=== PATIENT | male | born 1985 | race Caucasian/White ===

== ENCOUNTER 2019-11-16 06:26 | Inpatient (IN) ==
[2019-11-16] MEDS ORDERED: NS 500 ML IV ONE (06:45)
[2019-11-16] MEDS ORDERED: KEFZOL 1 GM/D5W 1 GM/50 ML IVPB IV ONE (06:46)
[2019-11-16 06:56] LABS: BASO# 0.05 X1000 (0.0-0.2); BASO% 0.5 % (0.0-0.8); EOS# 0.13 X1000 (0.0-0.7); EOS% 1.2 % (0.0-10.0); HEMATOCRIT 38.1 % (42.0-52.0); HEMOGLOBIN 13.1 g/dL (14.0-18.0); IMM GRAN# 0.02 X1000 (0.0-0.04); IMM GRAN% 0.2 % (0.0-0.5); LYMPH% 39.4 % (20.5-51.1); MCH 31.9 PG (27-31); MCHC 34.4 g/dL (33-37); MCV 92.7 FL (81-99); MONO# 0.81 X1000 (0.11-0.59); MONO% 7.8 % (1.7-9.3); MPV 11.6 FL (7.4-10.4); NEUT% 50.9 % (42.2-75.2); PLT 370 X1000 (130-400); RBC 4.11 XMIL (4.7-6.1); RDW 13.4 % (11.5-14.5); WBC 10.41 X1000 (4.8-10.8)
[2019-11-16 07:09] LABS: INR 1.06; PROTIME 13.9 Seconds (11.0-16.0)
[2019-11-16 07:10] LABS: PTT 28.2 Seconds (22.3-41.8)
[2019-11-16 07:14] LABS: AGAP 19; ALB/GLOB RATIO 1.3; ALBUMIN 4.3 g/dL (3.5-5.0); ALKALINE PHOSPHATASE 58 U/L (32-122); BUN 19 mg/dL (8-22); CALCIUM 8.7 mg/dL (8.8-10.2); CHLORIDE 100 mmol/L (98-107); COSMO 284; CREATININE 1.2 mg/dL (0.7-1.2); ESTIMATED GFR > 60; GLUCOSE 142 mg/dL (70-104); GOT 51 U/L (10-34); GPT 65 U/L (10-44); POTASSIUM 4.5 mmol/L (3.5-5.1); SODIUM 140 mmol/L (136-145); TCO2 21 mmol/L (25-35); TOTAL BILIRUBIN 0.37 mg/dL (0.20-1.00); TOTAL PROTEIN 7.7 g/dL (6.3-8.3)
--- NOTE | 2019-11-16 07:15 | GENERAL SURGERY CONSULTATION ---
DATE: 11/16/2019 REASON FOR CONSULTATION: Right arm laceration, with arterial injury. CHIEF COMPLAINT: Right arm laceration, with arterial injury. HISTORY OF PRESENT ILLNESS: This is a 34-year-old gentleman, who was intoxicated last night and punched his arm through a plate glass window causing a laceration to the medial upper arm. Apparently there was a large amount of blood noted on the scene. A tactical tourniquet was placed by EMS. He was brought emergently to [facility] where upon losing the tourniquet brisk arterial bleeding was noted. I was consulted. MEDICAL HISTORY: Negative other than drug abuse and alcoholism. SURGICAL HISTORY: He denies any vascular procedures. SOCIAL HISTORY: He smokes. He drinks. I believe he uses methamphetamine as well. FAMILY HISTORY: Reviewed noncontributory. REVIEW OF SYSTEMS: A 10-point review of systems is negative. PHYSICAL EXAMINATION: General: He is hemodynamically stable, but agitated and quite pale. On examination he is conversant, he is pale, somewhat diaphoretic. HEENT/Neck: No cervical masses. No obvious trauma to his head or neck Cardiovascular: Slight tachycardia. Pulmonary: He is on room air. Abdomen: Soft. Integument: Warm and dry. Peripheral vascular: There is a tourniquet up on his right arm. His right hand is cyanotic. The intrinsic muscles of his hand and arm do seem to be grossly intact. There is a large laceration to the medial aspect of his arm with some venous bleeding, but no obvious arterial bleeding at this juncture. Musculoskeletal: I do not identify any other injury visible, although there is quite a lot of blood over his body. DIAGNOSTIC DATA: Labs are pending. No imaging has been obtained. ASSESSMENT AND PLAN: This is a 34-year-old gentleman with a laceration to the medial biceps, with possible arterial injury. We discussed risk of further bleeding, infection, the need for emergent procedure, and the possible loss of his arm or loss of function of his arm. He is right handed unfortunately. Although he is intoxicated, he seemed to understand all this and consents and asked me to help him. We will take him to the operating room emergently. A Handy catheter is being placed. He has been administered antibiotics. We will confirm tetanus prior to his discharge. We will go emergently for exploration, possible brachial artery repair, possible interposition vein graft, and all other indicated procedures. cc: Debbi Petersen MD
[2019-11-16] MEDS ORDERED: NS 1,000 ML IV ONE ×2 (07:25→07:26)
[2019-11-16 07:29] LABS: UR AMPHETAMINES QUAL PRESUMPTIVE POSITIVE (NONE DETECT); UR BARBITUATES QUAL NONE DETECTED (NONE DETECT); UR BENZODIAZEPIN QUAL NONE DETECTED (NONE DETECT); UR CANNABINOIDS QUAL PRESUMPTIVE POSITIVE (NONE DETECT); UR COCAINE QUAL NONE DETECTED (NONE DETECT); UR METHADONE QUAL NONE DETECTED (NONE DETECT); UR OPIATES QUAL NONE DETECTED (NONE DETECT); UR OXYCODONE QUAL NONE DETECTED (NONE DETECT); UR PCP QUAL NONE DETECTED (NONE DETECT)
[2019-11-16] MEDS ORDERED: DIPRIVAN 1% ONE ×2 (07:42)
[2019-11-16] MEDS ORDERED: FENTANYL ONE (07:42)
[2019-11-16] MEDS ORDERED: KEFZOL 1 GM/D5W 1 GM/50 ML IVPB ONE (07:45)
[2019-11-16] MEDS ORDERED: HEPARIN (DOSE) ONE (08:17)
--- NOTE | 2019-11-16 08:17 | PROVIDER DOCUMENTATION ---
HPI-Rash/Wound/ReCheck - General Chief Complaint: Laceration[s] Stated Complaint: laceration Time Seen by Provider: 11/16/19 06:26 Source: patient, EMS Unable to obtain history due to:: urgency Allergies/Adverse Reactions: Allergies Allergy/AdvReac Type Severity Reaction Status Date / Time clarithromycin [From Biaxin] Allergy Mild SWELLING Verified 02/07/19 19:07 Home Medications: Home Medication List Medication Instructions Recorded Confirmed Last Taken Type Atenolol 25 mg PO QHS 30 Days #30 tab 09/11/18 11/16/19 Unknown Rx Divalproex Sodium [Divalproex 1 tab PO TID 02/07/19 11/16/19 Unknown History Sodium ER] - History of Present Illness-Dermatology Nature of Presenting Problem: 34 y/o WM brought to ER with complaint of laceration in Rt arm where pt stated that he had punched a window trying to show off this am. Pt is a poor historian admitting that he has been drinking and using THC and other drugs. EMS noted that pt had lost about 1000 ml blood at home. Location: reports: upper extremity (rt inner arm) Quality: reports: painful Severity: reports: severe Onset/Duration: reports: just prior to arrival Timing: reports: still present, getting worse Context/Associated Symptoms: reports: laceration Identifiable cause?: Yes Locality of Occurance: Home Similar Symptoms Previously?: No Recently seen or treated by another doctor?: No Review of Systems - Adult - REVIEW OF SYSTEMS - ADULT ROS:: limited per condition Constitutional: reports: no symptoms reported, see HPI Eyes: reports: no symptoms reported, see HPI Ears, Nose, Mouth & Throat: reports: no symptoms reported, see HPI Cardiovascular: reports: no symptoms reported, see HPI Respiratory: reports: no symptoms reported, see HPI Gastrointestinal: reports: no symptoms reported, see HPI Genitourinary: reports: no symptoms reported, see HPI Musculoskeletal: reports: see HPI Integumentary: reports: see HPI, other (large laceration to rt inner upper arm approx 3cm. laceration to lt outer wrist, approx 3cm.) Neurological: reports: no symptoms reported, see HPI Psychiatric: reports: anxiety Endocrine: reports: no symptoms reported, see HPI Hematologic/Lymphatic: reports: no symptoms reported, see HPI Allergic/Immunologic: reports: no symptoms reported, see HPI All Other Systems: Reviewed and Negative Past History - Adult - PAST MEDICAL HISTORY-ADULT Review of Records: reports: Nursing Assessment Review, Medications Reviewed, Social history reviewed & non-contributory. Major Childhood Illnesses: reports: denies history Cardiovascular: reports: HTN Respiratory: reports: denies history Gastrointestinal: reports: GERD Obstetrical/Gynecological: reports: denies history Genitourinary: reports: denies history Musculoskeletal: reports: denies history Neurological: reports: Seizures/Epilepsy Psychiatric: reports: anxiety, depression Endocrine/Immune: reports: denies history Other Conditions: reports: other (chronic pain) Additional History: denies recent travel; eats sushi regularly; no other known risk factors - PRIOR HOSPITALIZATIONS Prior Hospitalizations: reports: for other non-related - IMMUNIZATION STATUS Childhood Immunizations: See Nurse Assessment Flu Vaccine: See Nurse Assessment - FAMILY HISTORY Family History: reviewed, not pertinent Physical Exam-General - PHYSICAL EXAM-ADULT Exam Limited by: pt condition Initial Vital Signs Reviewed: Yes - CONSTITUTIONAL General Appearance: appears well, alert, moderate distress, thin - EYES Eyes: PERRL/EOMI - HEAD, EARS, NOSE, MOUTH & THROAT HENMT: normocephalic/atraumatic, moist mucous membranes - NECK Neck: non-tender, full range of motion, supple, normal inspection - RESPIRATORY Respiratory: chest non-tender, lungs clear, normal breath sounds, no pleuratic chest pain, no respiratory distress, no accessory muscle use - CARDIOVASCULAR Cardiovascular: normal peripheral pulses, regular rate, rhythm, no edema, no gallop, no JVD, no murmur - GASTROINTESTINAL (ABDOMEN) Abdominal Exam: normal bowel sounds, non tender, soft, no organomegaly, no pulsatile mass - LYMPHATIC Lymphatic: no adenopathy - MUSCULOSKELETAL Back Exam: normal inspection, no CVA tenderness, no vertebral tenderness Extremity: normal range of motion, non-tender, normal gait, normal inspection, no pedal edema, no calf tenderness, normal capillary refill - SKIN Integumentary: laceration(s) (as above) - NEUROLOGIC Neurologic: truck driver instructor II-XII nml as tested, grossly normal, no motor/sensory deficits - PSYCHIATRIC Psych/Mental Status: anxious, paranoid, tearful Progress - PLAN OF CARE/RESULTS Progress/Plan/Lab Results: Laboratory Results - last 24 hr 11/16/19 11/16/19 11/16/19 06:44 06:44 06:44 WBC RBC Hgb Hct MCV MCH MCHC RDW Std Deviation Plt Count MPV Immature Gran % (Auto) Neut % (Auto) Lymph % (Auto) [place] % (Auto) Eos % (Auto) Baso % (Auto) Immature Gran # (Auto) Neut # (Auto) Lymph # (Auto) [place] # (Auto) Eos # (Auto) Baso # (Auto) PT INR PTT (Actin FS) Sodium 140 Potassium 4.5 Chloride 100 Carbon Dioxide 21 L Anion Gap 19 BUN 19 Creatinine 1.2 Estimated GFR/1.73 m2 > 60 BUN/Creatinine Ratio 16 Glucose 142 H Calculated Osmolality 284 Calcium 8.7 L Total Bilirubin 0.37 AST 51 H ALT 65 H Alkaline Phosphatase 58 Total Protein 7.7 Albumin 4.3 Globulin 3.4 Albumin/Globulin Ratio 1.3 Urine Opiates Screen Ur Oxycodone Screen Ur Methadone, Qual Ur Barbiturates Screen Ur Phencyclidine Scrn Ur Amphetamines Screen U Benzodiazepines Scrn Urine Cocaine Screen U Cannabinoids Screen Plasma/Serum Ethyl Alc 259 H Blood Type A NEGATIVE Antibody Screen NEGATIVE Crossmatch See Detail 11/16/19 11/16/19 11/16/19 06:44 06:44 07:00 WBC 10.41 RBC 4.11 L Hgb 13.1 L Hct 38.1 L MCV 92.7 MCH 31.9 H MCHC 34.4 RDW Std Deviation 13.4 Plt Count 370 MPV 11.6 H Immature Gran % (Auto) 0.2 Neut % (Auto) 50.9 Lymph % (Auto) 39.4 [place] % (Auto) 7.8 Eos % (Auto) 1.2 Baso % (Auto) 0.5 Immature Gran # (Auto) 0.02 Neut # (Auto) 5.30 Lymph # (Auto) 4.10 H [place] # (Auto) 0.81 H Eos # (Auto) 0.13 Baso # (Auto) 0.05 PT 13.9 INR 1.06 PTT (Actin FS) 28.2 Sodium Potassium Chloride Carbon Dioxide Anion Gap BUN Creatinine Estimated GFR/1.73 m2 BUN/Creatinine Ratio Glucose Calculated Osmolality Calcium Total Bilirubin AST ALT Alkaline Phosphatase Total Protein Albumin Globulin Albumin/Globulin Ratio Urine Opiates Screen NONE DETECTED Ur Oxycodone Screen NONE DETECTED Ur Methadone, Qual NONE DETECTED Ur Barbiturates Screen NONE DETECTED Ur Phencyclidine Scrn NONE DETECTED Ur Amphetamines Screen PRESUMPTIVE POSITIVE A U Benzodiazepines Scrn NONE DETECTED Urine Cocaine Screen NONE DETECTED U Cannabinoids Screen PRESUMPTIVE POSITIVE A Plasma/Serum Ethyl Alc Blood Type Antibody Screen Crossmatch Orders Category Date Time Status Consent for Test/Procedure DIRECTED Care 11/16/19 06:45 Completed Handy Cath Insertion ORDERED Care 11/16/19 06:50 Completed Notify if DIRECTED Care 11/16/19 06:45 Active Nursing- Obtain EKG ONCE Care 11/16/19 06:29 Completed Transfuse .Give-Transfuse Care 11/16/19 06:46 Active HUMERUS-RIGHT [RAD] Stat Exams 11/16/19 07:00 Completed ALCOHOL BLOOD Stat Lab 11/16/19 06:44 Completed CBC WITH ELECTRONIC DIFF [HEME] Stat Lab 11/16/19 06:44 Completed COMPREHENSIVE METABOLIC PANEL [CHEM] Stat Lab 11/16/19 06:44 Completed LRPC (RED CELLS) [BBK] Stat Lab 11/16/19 06:44 Results PROTIME WITH INR [COAG] Stat Lab 11/16/19 06:44 Completed PTT [COAG] Stat Lab 11/16/19 06:44 Completed TYPE & SCREEN [BBK] Stat Lab 11/16/19 06:44 Results URINE DRUG SCREEN Stat Lab 11/16/19 07:00 Completed 0.9% Sodium Chloride Inj [Ns] 1,000 ml Med 11/16/19 07:25 Discontinued IV 999 mls/hr 0.9% Sodium Chloride Inj [Ns] 1,000 ml Med 11/16/19 07:26 Discontinued IV 999 mls/hr 0.9% Sodium Chloride Inj [Ns] 500 ml Med 11/16/19 06:45 Discontinued IV 30 mls/hr Cefazolin 1 gm/D5w [Kefzol 1 gm/D5w] Med 11/16/19 07:45 Discontinued 1 gm in 50 ml .ROUTE As directed Cefazolin 1 gm/D5w [Kefzol 1 gm/D5w] Med 11/16/19 06:46 Discontinued 1 gm in 50 ml IV NOW Fentanyl Med 11/16/19 07:42 Discontinued 100 microgm .ROUTE .STK-MED ONE Propofol [Diprivan 1%] Med 11/16/19 07:42 Discontinued 200 mg .ROUTE .STK-MED ONE Propofol [Diprivan 1%] Med 11/16/19 07:42 Discontinued 200 mg .ROUTE .STK-MED ONE Permit for: Routine Oth 11/16/19 06:53 Ordered EKG [EKG] Stat Ther 11/16/19 06:29 Ordered Result Diagrams: 11/16/19 17:34 11/16/19 10:11 - CONSULTS/PCP/HOSPITALIST Notification #1 *Consult/PCP/Hospitalist*: Dr Petersen Surgery Time Discussed: 06:45 Consult Disposition: Will see in ED Departure - Departure Date of Disposition Decision: 11/16/19 Time of Disposition Decision: 08:24 DIAGNOSIS: Arm laceration, Intoxication, Hypovolemic shock, Substance abuse Disposition: ADMITTED INPATIENT 09 Certified Medical Emergency: Emergent Condition: Serious - Critical Care Note This patient required my direct & personal management of CC.: Yes Total Time (mins): 60 Critical Care Statement: This patient required my direct personal management to treat or rule out processes, the absence of which, could potentiallly result in sudden, clinically significant life or limb threatening deterioration. Attestation - Physician/ DESHAWN Attestation Patient care was provided by Advanced Practice Provider:: No The physician spent face to face time with patient:: Yes Advanced Practice Provider documentation review:: Supervising physician onsite and consulted in the evaluation and care of this patient. The physician did have a face to face encounter with the patient.
[2019-11-16] MEDS ORDERED: HEPARIN ONE (08:53)
[2019-11-16] MEDS ORDERED: NS 250 ML ONE (08:54)
[2019-11-16] MEDS ORDERED: KEFZOL ONE (09:12)
[2019-11-16] MEDS ORDERED: XYLOCAINE-MPF 2% ONE (10:04)
[2019-11-16] MEDS ORDERED: ZEMURON ONE (10:04)
[2019-11-16] MEDS ORDERED: SODIUM CHLORIDE 0.9% 10 ML ONE (10:04)
[2019-11-16] MEDS ORDERED: QUELICIN (DOSE) ONE (10:04)
[2019-11-16] MEDS ORDERED: NEO-SYNEPHRINE ONE (10:04)
[2019-11-16] MEDS: ZOFRAN IV PRN ×2 (10:07→14:17)
[2019-11-16] MEDS ORDERED: HEPARIN 25,000 UNITS/D5W 25,000 UNIT/250 ML IV.SOLN IV SCH ×3 (10:07→18:45)
[2019-11-16] MEDS: DILAUDID ONE ×4 (10:21→10:31)
[2019-11-16] MEDS ORDERED: TYLENOL PO PRN (10:29)
[2019-11-16 10:34] LABS: BASO# 0.03 X1000 (0.0-0.2); BASO% 0.2 % (0.0-0.8); EOS# 0.03 X1000 (0.0-0.7); EOS% 0.2 % (0.0-10.0); HEMATOCRIT 32.5 % (42.0-52.0); HEMOGLOBIN 10.7 g/dL (14.0-18.0); IMM GRAN# 0.06 X1000 (0.0-0.04); IMM GRAN% 0.4 % (0.0-0.5); LYMPH# 1.56 X1000 (1.2-3.4); LYMPH% 10.5 % (20.5-51.1); MCH 29.9 PG (27-31); MCHC 32.9 g/dL (33-37); MCV 90.8 FL (81-99); MONO# 0.71 X1000 (0.11-0.59); MONO% 4.8 % (1.7-9.3); MPV 11.1 FL (7.4-10.4); NEUT# 12.43 X1000 (1.4-6.5); NEUT% 83.9 % (42.2-75.2); PLT 224 X1000 (130-400); RBC 3.58 XMIL (4.7-6.1); RDW 15.7 % (11.5-14.5); WBC 14.82 X1000 (4.8-10.8)
[2019-11-16] MEDS: PHENERGAN ONE ×2 (10:35→11:46)
[2019-11-16 11:01] LABS: AGAP 12; BUN 14 mg/dL (8-22); CALCIUM 6.3 mg/dL (8.8-10.2); CHLORIDE 111 mmol/L (98-107); COSMO 283; CREATININE 0.8 mg/dL (0.7-1.2); ESTIMATED GFR > 60; GLUCOSE 124 mg/dL (70-104); POTASSIUM 5.3 mmol/L (3.5-5.1); SODIUM 141 mmol/L (136-145); TCO2 18 mmol/L (25-35)
[2019-11-16] MEDS: DEPAKOTE ER PO SCH ×3 (11:44→21:41)
[2019-11-16] MEDS: LR 1,000 ML IV SCH ×2 (11:46→19:26)
[2019-11-16] MEDS ORDERED: CALCIUM GLUCONATE 4.65 MEQ in NS 50 ML IV ONE (12:54)
--- NOTE | 2019-11-16 13:27 | Diag Imaging Result Doc PS360 ---
EXAM: HUMERUS-RIGHT HISTORY: arterial bleed TECHNIQUE: Two views COMPARISON: None. FINDINGS: No fracture. No dislocation. There are medial skin anju. Tiny pieces of metal in the soft tissues of the lower arm. IMPRESSION: No acute bony injury. Electronically signed by Dash Bell 11/16/2019 1:25 PM
--- NOTE | 2019-11-16 13:34 | HISTORY AND PHYSICAL ---
PRIMARY CARE PROVIDER: Nicole Calloway, nurse practitioner. CHIEF COMPLAINT: Polysubstance intoxication. Hit window and sustained right arm laceration with arterial injury. HISTORY OF PRESENT ILLNESS: Mr. Shahid Shi is a 34-year-old male that came in earlier this morning, went for emergency surgery due to an injury he sustained to the right brachial artery transection with surgery performed by Dr. Deon Petersen. Postoperatively, we were able to see and evaluate. He has a medical history of hepatitis C, where he states he had already been treated for it. History of pituitary adenoma, anxiety, depression, hypertension with tachycardia and seizure disorder. He states the last time he had a seizure was around 2 nights ago, but he is on Depakote for that. Postoperatively he was transferred to [facility] so his arterial pulse can be monitored more closely and has a heparin drip that has been ordered. Mr. Shahid Shi admits to drinking whiskey, snorting methamphetamines and smoked marijuana last night. PAST MEDICAL HISTORY: 1. Seizure disorder. Last one was 2 nights ago on Depakote. 2. Hypertension with tachycardia on atenolol. 3. Anxiety, depression. 4. History of pituitary adenoma. 5. History of hepatitis C with treatment. SURGICAL HISTORY: None until now. He is status post a day of surgery for repair of transected right brachial artery; also with repair of tendons, etc. SOCIAL HISTORY: He smokes less than half pack per day. Started smoking cigarettes at the age of 11. He drinks about a fifth of whiskey 3 days a week. He smokes marijuana 3 or 4 times a month. He also snorts methamphetamines at least 5 times a year. He is not , no children. He lives at home with his grandmother. He also does not work. FAMILY HISTORY: Mother had diabetes. Father had pancreatic cancer. ALLERGIES: Clarithromycin, Robaxin. HOME MEDICATIONS: 1. Atenolol 25 mg p.o. nightly. 2. Depakote 500 mg p.o. t.i.d. REVIEW OF SYSTEMS: Fourteen point review of systems are complete and all were negative, except those mentioned above in the HPI. PHYSICAL EXAMINATION: VITAL SIGNS: Temperature 96.9 degrees, heart rate 85, respiratory rate 16, blood pressure 104/66, O2 saturation 99% on room air, 5 feet 9 inches tall, 180 pounds. BMI is 26.6. GENERAL: Mr. Shahid Shi is a 34-year-old male. He is in no acute distress. He is able to answer questions appropriately. HEENT: Atraumatic, normocephalic. Pupils equal, round, reactive to light. Extraocular movements intact. Mucous membranes are dry. NECK: Trachea midline. CARDIOVASCULAR: S1, S2. Regular rate and rhythm. No rubs, gallops, murmurs. No lower extremity edema. There is +2 dorsalis and radial pulses. He has got good capillary refill in the right hand. Negative for JVD or carotid bruits. PULMONARY: Clear to auscultate. Bilateral breath sounds. No accessory muscle use or work of breathing noted. GI: Soft, nontender, nondistended. Positive bowel sounds x4. EXTREMITIES: Moves all extremities equally, except for the right arm. He defers from moving it due to the pain. He has a pressure dressing wrapped around the right upper extremity, right above the elbow. NEUROLOGIC: A and O x3. Follows commands. Sensory is intact. He is a little bit drowsy, but otherwise mostly alert. SKIN: Warm, dry, intact, except for he has got dressing over the right upper arm, and he has a little bit of a pale color to him. LABORATORY DATA: White blood cells 14,000, hemoglobin 10, hematocrit 32, platelet count 224. INR is 1.06, PTT is 33.6. Sodium 141, potassium 5.3. BUN 14, creatinine 0.8, glucose 124, calcium 6.3. Bilirubin 0.37, AST 51, ALT 65, albumin is 4.3. Urine drug screen: Amphetamine positive, cannabinoid positive, and alcohol was 259. MICROBIOLOGY: No micro obtained. He received 1 unit of packed red blood cells. IMAGING STUDIED: No new imaging. ASSESSMENT AND PLAN: 1. Traumatic injury of the right brachial artery and tendons with repair by Dr. Petersen. Today is day of surgery. Postoperatively, he is going to be monitored in progressive care unit. He is going to be on a heparin drip. Frequent neurovascular checks of the right upper extremity ordered, and he has got good capillary refill with +2 radial pulse, warm hands. 2. History of seizure disorder. Apparently had one 2 nights ago, but he is on Depakote and that has been resumed. 3. History of hypertension with tachycardia. He is on atenolol for that. That is resumed. 4. History of anxiety and depression. No home medications for that. However, he is on Depakote, which can be mood stabilizing. 5. History of pituitary adenoma. 6. History of hepatitis C where he states he has been treated. However, he does have some transaminitis that could be related to the alcohol abuse. We will repeat a hepatitis panel here. 7. Mild hyperkalemia. Potassium is 5.3. Could be due to blood transfusion, possibly lysis of blood, red blood cells. 8. Acute blood loss anemia secondary to right brachial artery transection. 9. Leukocytosis, most likely inflammatory. As for original, white count was at 10,000. 10. Mild hyperglycemia; could be inflammatory. 11. Hypocalcemia; could be due to blood loss. Will repeat in the morning. 12. Amphetamine abuse, cannabinoid abuse, alcohol abuse. Cessation discussed with the patient. We will go ahead and do Ativan as needed for agitation. We will consider a one-time banana bag as long as it does not have potassium in it. 13. Tobacco abuse. Cessation discussed. Dictated by AUTUMN Shoemaker for Phoenix Pederson MD cc: AUTUMN Shoemaker MD I agree with most components of history, physical, assessment and plan. A separate addendum has been dictated. [facility]
--- NOTE | 2019-11-16 13:44 | OPERATIVE NOTE ---
PROCEDURE DATE: 11/16/2019 PREOPERATIVE DIAGNOSIS: Right upper medial arm traumatic laceration. POSTOPERATIVE DIAGNOSIS: Laceration to the right upper arm with transsection of the brachial artery, transection of the brachial veins and partial transection of the median nerve. PROCEDURE PERFORMED: 1. [place] repair of the brachial artery. 2. Ligation of the brachial veins. 3. Primary repair of the median nerve. 4. Traumatic wound washout and debridement with complex closure. ANESTHESIA: General. SURGEON: Dr. Deon Petersen. MECHANICAL ENGINEERING PROFESSOR: Dr. Horn was present. He facilitated exposure, mobilization of the artery, repair of the artery, repair of the nerves. FINDINGS: 1. There was an anterior medial laceration that was several centimeters. There was there was tactical tourniquet in place. 2. There was complete transection and retraction of the brachial artery. There was significant longitudinal injury to the brachial veins and then there was partial transection of at least 50% if not 75% of the median nerve. OPERATIVE NOTE: Risks, benefits and alternatives were discussed with the patient and he consented to the procedure. He was seen preoperatively. Surgical site was confirmed. He was taken emergently to the operating room where his hand and arm were prepped Betadine, excluding the tactical tourniquet in the upper arm. We also prepped in his upper leg for possible greater saphenous vein harvest. After a time-out, we evacuated old hematoma out of the wound, identified several sources of venous bleeding and extended the laceration along the more typical medial arterial approach. We were able to identify the several bleeding veins that were clipped and then we identified the distal aspect of the brachial artery and gained distal control. The proximal portion at this point was identified and an atraumatic clamp was placed and the tourniquet was released. He was systemically heparinized with 3000 units of intravenous heparin. There was brisk back-bleeding noted from the distal aspect of the brachial artery. We then mobilized proximally and distally the brachial artery to provide a tension-free repair. We, using Kearney scissors, debrided just a small portion of the distal artery. There was no significant dissection. There was good inflow and outflow bleeding noted. At this point, using a 6-0 Prolene suture, an end-to-end anastomosis was performed. We confirmed that the brachial arteries were irreparable given the extent of damage here, but they were well ligated and we did identify several collateral veins that did appear to have flow. We then turned our attention after restoring flow, we took the distal clamp off, allowed bleeding, completed our repair and then took off the proximal clamp. There was a small arterial branch that was ligated with a 4-0 silk suture. We had a good distal pulse noted in the brachial artery. At the end the case, the radial artery had a strong palpable pulse. A 5-0 Prolene was used to reapproximate the perineural tissue to hopefully help prevent a significant deficit or allow more prompt recovery of this deficit and this did require some degree of mobilization of the proximal and distal nerve to provide relatively tension-free, but there was still some tension on the nerve given the significant injury here. At this point, hemostasis was noted, we had good in-line flow. We reapproximated the biceps muscle fascia which there was a large transection of at least 50% of the wound belly of the biceps at the medial aspect. We closed this and then reapproximated the dermis with 3-0 Vicryl. The superficial wound was irrigated with Ancef saline. There was no gross contamination noted and the skin was closed loosely with surgical clips. Gauze, Kerlix and a loose Evelio wrap was applied. He had a palpable radial pulse at the end the case and his hand was well perfused with normal capillary refill. In PACU, he did have movement of the intrinsic muscles of the hand and what seemed to be intact sensation. I spoke with his mother. We will admit him to our [facility] for close neurologic checks and heparin drip while starting an aspirin. cc: Debbi Petersen MD
--- NOTE | 2019-11-16 13:59 | HISTORY AND PHYSICAL ---
ADDENDUM: To history and physical dictated by the nurse practitioner. I agree with most components of history, physical, assessment and plan. In brief, Mr. Shi is a 34 years old man with past medical history of pituitary adenoma pending resection, seizure disorder, bipolar mood disorder, essential hypertension, substance abuse including alcohol, came in after he injured his right upper arm. Apparently, the patient was under the influence of alcohol or other substances and he tried to hit his garage window which was made up of glass which injured his proximal right arm and he started bleeding, so his family had called EMS. According to ER records, he had bled more than 1 L when he was brought to the emergency room. In the emergency room, he continued to bleed and was immediately taken for the surgery. He underwent repair of his bleeding brachial artery, the details of which are not clear to me at the moment. I saw him after the surgery. I am awaiting my discussion with the general surgical team. At the time of my evaluation, Mr. Shi is complaining of right shoulder region pain. He denies any chest pain, shortness of breath. He denies any vomiting. He denies abdominal pain. He denies any tingling or numbness of the right hand. REVIEW OF SYSTEMS: Positive for recent substance use. Positive for nausea. Negative for headache. Negative for blurring of vision. VITAL SIGNS: Temperature of 96.9 degrees, pulse 93, respiratory 17, blood pressure 110/74, saturating 99% on room air. PHYSICAL EXAMINATION: GENERAL: Not in acute distress. HEENT: Oral cavity is moist. LUNGS: Air entry bilaterally equal. No wheeze, rhonchi, crackles. CARDIOVASCULAR: S1, S2 normal. No murmur, rub or gallop. ABDOMEN: Soft, nontender. LOWER EXTREMITIES: No lower extremity edema. NEUROLOGIC: He is drowsy but is easily arousable and then he participates in clinical encounter. He has intact radial pulses bilaterally. He is able to wiggle his fingers. There is no cyanosis or erythema of the right hand. His flexion and extension at interphalangeal joint is intact. His wrist extension is also intact. He does have some weakness of wrist flexion. His flexion and extension at the elbow joint is intact. He has a large bandage around his right arm and there is tenderness. Examination of the shoulder is difficult because of the pain. LABORATORY DATA: Suggestive of hemoglobin of 10.7, platelet of 224,000. His chemistry suggests potassium of 5.3, chloride of 111, calcium of 6.3. MICROBIOLOGY: No data. IMAGING: His humerus x-ray is pending. ASSESSMENT AND PLAN: 1. Right arm injury likely involving brachial artery status post surgery, the details of which are currently pending. Follow up with humerus x-ray as per surgical team's recommendations, continue intravenous heparin drip as per surgical team's recommendation and [place] for pain. I will also keep him on intravenous fluid resuscitation. 2. Acute blood loss anemia due to brachial artery injury. I will follow up with frequent CBC and will transfuse as needed. He is status post 1 unit packed red blood cell transfusion. 3. Pituitary adenoma pending outpatient surgery evaluation, Seizure disorder. Continue home Depakote. 4. Essential hypertension. Continue home atenolol. 5. History of polysubstance abuse including alcohol, amphetamine, and cannabis with chronic Hepatitis C. I counseled him about quitting substances. Monitor for withdrawal symptoms and start on benzodiazepines as necessary. 6. Hypocalcemia. I will replete the calcium level. This could be related to blood transfusion. DISPOSITION: Continue to monitor patient inside the hospital. Plan of care discussed with the patient. He was allowed to ask questions, his questions have been answered. 35 minutes of time has been spent in taking care of this patient. cc: Phoenix Pederson MD [facility]
[2019-11-16] MEDS: NORCO-10 PO PRN ×2 (14:17→19:25)
[2019-11-16] MEDS: TUMS PO SCH ×2 (14:20→17:02)
[2019-11-16] MEDS: DILAUDID IV PRN ×2 (17:02→20:53)
[2019-11-16 17:57] LABS: BASO# 0.01 X1000 (0.0-0.2); BASO% 0.1 % (0.0-0.8); EOS# 0.03 X1000 (0.0-0.7); EOS% 0.2 % (0.0-10.0); HEMATOCRIT 29.4 % (42.0-52.0); HEMOGLOBIN 9.9 g/dL (14.0-18.0); IMM GRAN# 0.02 X1000 (0.0-0.04); IMM GRAN% 0.1 % (0.0-0.5); LYMPH# 2.25 X1000 (1.2-3.4); LYMPH% 16.6 % (20.5-51.1); MCH 29.9 PG (27-31); MCHC 33.7 g/dL (33-37); MCV 88.8 FL (81-99); MONO# 0.87 X1000 (0.11-0.59); MONO% 6.4 % (1.7-9.3); MPV 11.8 FL (7.4-10.4); NEUT# 10.37 X1000 (1.4-6.5); NEUT% 76.6 % (42.2-75.2); PLT 231 X1000 (130-400); RBC 3.31 XMIL (4.7-6.1); RDW 16.8 % (11.5-14.5); WBC 13.55 X1000 (4.8-10.8)
[2019-11-16] MEDS: HEPARIN IV PRN (19:26)
[2019-11-16] MEDS: TENORMIN PO SCH (21:41)
[2019-11-17] MEDS: DILAUDID IV PRN ×5 (01:18→20:33)
[2019-11-17] MEDS: ZOFRAN IV PRN ×3 (01:30→19:49)
[2019-11-17] MEDS: LR 1,000 ML IV SCH ×2 (02:17→11:06)
[2019-11-17] MEDS: HEPARIN IV PRN (02:17)
[2019-11-17] MEDS: NORCO-10 PO PRN ×3 (02:17→15:14)
[2019-11-17] MEDS: ATIVAN IV PRN (04:07)
[2019-11-17 05:59] LABS: HEMATOCRIT 25.4 % (42.0-52.0); HEMOGLOBIN 8.5 g/dL (14.0-18.0); MCH 30.7 PG (27-31); MCHC 33.5 g/dL (33-37); MCV 91.7 FL (81-99); MPV 11.9 FL (7.4-10.4); RBC 2.77 XMIL (4.7-6.1); RDW 17.1 % (11.5-14.5); WBC 9.07 X1000 (4.8-10.8)
[2019-11-17 06:26] LABS: HEMOGLOBIN A1C 4.9 % (4.8-6.0)
[2019-11-17 06:41] LABS: AGAP 9; ALBUMIN 3.2 g/dL (3.5-5.0); ALKALINE PHOSPHATASE 42 U/L (32-122); BUN 9 mg/dL (8-22); CALCIUM 7.5 mg/dL (8.8-10.2); CHLORIDE 102 mmol/L (98-107); COSMO 271; CREATININE 0.8 mg/dL (0.7-1.2); ESTIMATED GFR > 60; GLUCOSE 104 mg/dL (70-104); GOT 26 U/L (10-34); GPT 32 U/L (10-44); MAGNESIUM 1.5 mg/dL (1.5-2.7); POTASSIUM 3.6 mmol/L (3.5-5.1); SODIUM 136 mmol/L (136-145); TCO2 25 mmol/L (25-35); TOTAL BILIRUBIN 0.73 mg/dL (0.20-1.00); TOTAL PROTEIN 4.8 g/dL (6.3-8.3)
[2019-11-17 07:07] LABS: I-STAT BE -11 mmoll (-2-3); I-STAT GLUCOSE 124 mg/dL (70-105); I-STAT HEMOGLOBIN 10.5 g/dL (11.5-17.5); I-STAT K 5.6 mmoll (3.5-4.9); I-STAT SODIUM 141 mmoll (138-146); I-STAT TCO2 19 mmoll (23-27); I-STAT pH 7.173 (7.350-7.450)
[2019-11-17] MEDS: TUMS PO SCH ×3 (08:58→16:58)
[2019-11-17] MEDS: ASPIRIN PO SCH (08:58)
[2019-11-17] MEDS: DEPAKOTE ER PO SCH ×3 (08:58→16:58)
[2019-11-17] MEDS: HEPARIN 25,000 UNITS/D5W 25,000 UNIT/250 ML IV.SOLN IV SCH (10:01)
[2019-11-17] MEDS ORDERED: DIPHTHERIA/TETANUS ADULT IM ONE (10:31)
--- NOTE | 2019-11-17 10:46 | GENERAL SURGERY PROGRESS NOTE ---
DATE: 11/17/2019 SUBJECTIVE: Paresthesias in his fingertips, but intrinsic muscles are weak but intact. He has a radial pulse. Some serosanguineous drainage on his dressing. No fevers. No tachycardia. OBJECTIVE: Vital Signs: Blood pressure 135/80, oxygen saturation 99% on room air. General: He is alert. Extremities: His hand is well perfused normal capillary refill. Palpable radial pulse. Dressing is intact. There is some serosanguineous drainage noted. Intrinsic muscles are weak, but he is able to oppose his digits with this thumb and he has flexion extension of his wrist. LABORATORY DATA: White count 9, hematocrit 25 creatinine 0.8. ASSESSMENT AND PLAN: This is a gentleman with brachial artery transection, median nerve injury and brachial vein injury from a glass window. We will continue heparin drip and his aspirin as well as medical management. I am going to continue him on some Ancef given the potentially contaminated nature, although there was no gross contamination. We will also need to confirm tetanus. cc: Debbi Petersen MD
[2019-11-17] MEDS: NEURONTIN PO SCH ×2 (11:24→21:08)
[2019-11-17] MEDS: LEXAPRO PO SCH (11:25)
--- NOTE | 2019-11-17 13:26 | PROGRESS NOTE ---
DATE: 11/17/2019 INTERVAL HISTORY: No acute events overnight. His vitals remain stable. He did have a drop in his hemoglobin. His hypocalcemia was repleted yesterday. He denies having any withdrawal symptoms from alcohol, though he is feeling a little jittery. SUBJECTIVE: He denies any chest pain, shortness of breath, nausea, vomiting, abdominal pain. He was able to eat his diet. REVIEW OF SYSTEMS: Positive for tingling of the right hand, and pain associated with it. Positive for weakness of the right upper extremity. OBJECTIVE: Vital Signs: Temperature 98.4 degrees, pulse 90, respiratory rate 18, blood pressure 138/72, saturating 96% on room air. General: Not in acute distress. HEENT: Oral cavity is moist. Lungs: Air entry bilaterally equal. No wheeze, rhonchi, crackles. Cardiovascular: S1, S2 normal. No murmur or gallop. Abdomen: Soft, nontender. Active bowel sounds. Extremities: No lower extremity edema. His radial pulses are equal bilaterally. I could also feel his brachial pulse on the right antecubital foci. Neurologic: He is alert and oriented x3. He is able to move fingers of his right hand, perform flexion and extension of the wrist, perform shoulder shrug. The movement of the elbow joint is currently restricted because of heavy bandage and pain. IMAGING AND LABORATORY DATA: WBC 9.07, hemoglobin 8.5, platelets 173,000. INR is 135. BUN 9, creatinine 0.6, potassium of 3.6, calcium is 7.5. No positive microbiological data. Review of surgical operative note suggests he underwent repair of brachial artery, ligation of brachial veins, primary repair of median nerve, with wound washout and debridement. He also given a tetanus shot. ASSESSMENT AND PLAN: 1. Right arm injury involving brachial artery, brachial vein, and median nerve, status post repair with washout and debridement. Continue intravenous heparin drip, aspirin, cefazolin as per General Surgery recommendations. Continue intravenous hydromorphone and oral [place] for pain. He is also on intravenous lactated Ringer's. 2. Acute blood loss anemia due to brachial artery injury. He is status post 1 unit of packed red blood cell. I will start him on iron supplement, and follow up CBC. 3. Pituitary adenoma. Pending outpatient surgical evaluation, and history of seizure disorder. Continue home Depakote, and add gabapentin. 4. History of essential hypertension. Continue home atenolol. 5. History of polysubstance abuse, including alcohol, amphetamine, cannabis, with chronic hepatitis C. He was counseled about quitting those substances. I gave him intravenous lorazepam as needed for withdrawal symptoms. 6. Others. His hypocalcemia was repleted. I will continue him on oral calcium supplements, and I will resume his Lexapro for history of depression. 7. Disposition. Continue to monitor the patient inside PVC unit. Plan of care discussed with the surgical team, as well as with the patient. He was allowed to ask questions. His questions have been answered. cc: Phoenix Pederson MD
[2019-11-17] MEDS: KEFZOL 2 GM/D5W 2 GM/50 ML IVPB IV SCH ×2 (15:14→23:58)
[2019-11-17] MEDS: TENORMIN PO SCH (21:08)
[2019-11-18] MEDS: DILAUDID IV PRN ×4 (03:37→18:10)
[2019-11-18] MEDS: HEPARIN 25,000 UNITS/D5W 25,000 UNIT/250 ML IV.SOLN IV SCH ×2 (04:41→07:34)
[2019-11-18 06:02] LABS: HEMATOCRIT 24.7 % (42.0-52.0); MCHC 32.4 g/dL (33-37); MCV 92.5 FL (81-99); MPV 11.8 FL (7.4-10.4); RBC 2.67 XMIL (4.7-6.1); RDW 16.6 % (11.5-14.5); WBC 5.15 X1000 (4.8-10.8)
[2019-11-18 06:23] LABS: AGAP 11; ALB/GLOB RATIO 1.8; ALBUMIN 3.4 g/dL (3.5-5.0); ALKALINE PHOSPHATASE 50 U/L (32-122); BUN 8 mg/dL (8-22); CALCIUM 8.1 mg/dL (8.8-10.2); CHLORIDE 105 mmol/L (98-107); COSMO 281; CREATININE 0.8 mg/dL (0.7-1.2); ESTIMATED GFR > 60; GLUCOSE 99 mg/dL (70-104); GOT 32 U/L (10-34); GPT 33 U/L (10-44); MAGNESIUM 1.7 mg/dL (1.5-2.7); POTASSIUM 3.5 mmol/L (3.5-5.1); SODIUM 142 mmol/L (136-145); TCO2 26 mmol/L (25-35); TOTAL BILIRUBIN 0.38 mg/dL (0.20-1.00); TOTAL PROTEIN 5.3 g/dL (6.3-8.3)
[2019-11-18] MEDS: LR 1,000 ML IV SCH (06:32)
[2019-11-18] MEDS: ZOFRAN IV PRN ×2 (06:41→18:10)
--- NOTE | 2019-11-18 06:58 | GENERAL SURGERY PROGRESS NOTE ---
DATE: 11/18/2019 SUBJECTIVE: Pain is okay. Strength is somewhat improved. Only deficit identifiable, other than some weakness, is lack of flexion of his index finger. No fevers. No tachycardia. OBJECTIVE: His right dressing is clean. He has a palpable radial pulse. ASSESSMENT/PLAN: A 34-year-old gentleman status post repair of a brachial artery laceration and median nerve. We will continue current management, heparin drip, physical therapy. cc: Debbi Petersen MD [facility]
[2019-11-18] MEDS: NORCO-10 PO PRN ×4 (07:34→21:29)
[2019-11-18] MEDS: LEXAPRO PO SCH (08:56)
[2019-11-18] MEDS: NEURONTIN PO SCH ×2 (08:57→21:28)
[2019-11-18] MEDS: TUMS PO SCH ×3 (08:57→21:28)
[2019-11-18] MEDS: DEPAKOTE ER PO SCH ×3 (08:57→21:29)
[2019-11-18] MEDS: KEFZOL 2 GM/D5W 2 GM/50 ML IVPB IV SCH ×2 (08:57→16:35)
[2019-11-18] MEDS: ASPIRIN PO SCH (08:57)
[2019-11-18] MEDS: FERROUS SULFATE PO SCH (08:57)
[2019-11-18 09:56] LABS: HEPATITIS PROFILE ACUTE SEE COMMENTS
[2019-11-18] MEDS ORDERED: PRILOSEC PO ONE (13:21)
[2019-11-18] MEDS: LACTULOSE PO SCH ×2 (13:42→21:29)
--- NOTE | 2019-11-18 14:08 | PROGRESS NOTE ---
DATE: 11/18/2019 INTERVAL HISTORY: No acute events overnight. His intravenous fluid rate had been decreased and he has been on intravenous cefazolin. He has not had a bowel movement unfortunately. His hypocalcemia is currently improving. He continues to have a drop in his hemoglobin. SUBJECTIVE: Mr. Shi is feeling the same. He denies any chest pain or shortness of breath. He denies any cough. His wound was left open by the surgeon today. VITALS: Currently, temperature of 98.6 degrees, pulse 92, respiratory rate 18, blood pressure 132/82. He is saturating 97% on room air. PHYSICAL EXAMINATION: Not in acute distress. Oral cavity is moist. Mild conjunctival pallor. No cyanosis, clubbing, or icterus. Lungs: Air entry bilaterally equal. No wheeze, rhonchi, or crackles. Cardiovascular: S1, S2 normal. No murmur, rub, or gallop. Abdomen: Soft, nontender. No lower extremity edema. He has right arm swelling and I could see the anju on the right proximal arm where he had surgery. There are some spots of blood oozing from it, without any pus. He has intact bilateral radial and brachial pulses. He is able to perform flexion and extension at the interphalangeal joints, wrist joints. He is not able to move his elbow because of pain. His shoulder shrug is intact bilaterally. LABS: Suggestive of WBC 5.1, hemoglobin 8, platelets 163,000. He is on a heparin drip. BUN 8, creatinine 0.8, calcium of 8.1. MICROBIOLOGY: None. IMAGING: No new imaging. ASSESSMENT AND PLAN: 1. Right arm injury involving brachial artery, brachial vein, and median nerve, status post repair with washout and debridement. Continue intravenous heparin drip, aspirin, intravenous cefazolin as per surgical team's recommendation. Continue intravenous hydromorphone and oral [place] for pain. I would anticipate discontinuation of intravenous fluids by surgical team soon. 2. Acute blood loss anemia due to brachial artery injury, status post 1 unit of packed red blood cells. Continue iron supplements. Follow up daily CBC. 3. Constipation. Considering patient's excruciating pain in the right arm, giving suppositories could be challenging. I will add lactulose to his MiraLAX regimen. Physical therapy on board. 4. Polysubstance abuse including alcohol, amphetamines, cannabis on presentation with prior history of chronic hepatitis C. He was counseled about quitting those substances. He is not manifesting any signs of withdrawal. I will give him intravenous lorazepam as needed. 5. Others. Continue Depakote and gabapentin for his history of seizure disorder and chronic pain; atenolol for essential hypertension; calcium carbonate for hypocalcemia; Lexapro for history of depression. 6. Disposition. Continue to monitor the patient in telemetry unit as we await further recommendation from surgical team. Physical therapy on board. Plan of care discussed with the patient. All of his questions have been answered. cc: Phoenix Pederson MD
[2019-11-18] MEDS: TENORMIN PO SCH (21:29)
[2019-11-18] MEDS: ATIVAN IV PRN (21:29)
[2019-11-19] MEDS: KEFZOL 2 GM/D5W 2 GM/50 ML IVPB IV SCH ×2 (00:27→08:48)
[2019-11-19] MEDS: HEPARIN 25,000 UNITS/D5W 25,000 UNIT/250 ML IV.SOLN IV SCH (03:03)
[2019-11-19] MEDS: NORCO-10 PO PRN ×3 (04:37→11:56)
[2019-11-19] MEDS: ZOFRAN IV PRN (04:37)
[2019-11-19] MEDS: DILAUDID IV PRN ×3 (04:41→11:14)
[2019-11-19 06:26] LABS: HEMATOCRIT 23.6 % (42.0-52.0); HEMOGLOBIN 7.7 g/dL (14.0-18.0); MCH 30.9 PG (27-31); MCHC 32.6 g/dL (33-37); MCV 94.8 FL (81-99); MPV 12.3 FL (7.4-10.4); RBC 2.49 XMIL (4.7-6.1); RDW 16.3 % (11.5-14.5); WBC 4.09 X1000 (4.8-10.8)
[2019-11-19 06:33] LABS: AGAP 12; ALB/GLOB RATIO 1.6; ALBUMIN 3.3 g/dL (3.5-5.0); ALKALINE PHOSPHATASE 52 U/L (32-122); BUN 7 mg/dL (8-22); CALCIUM 8.3 mg/dL (8.8-10.2); CHLORIDE 101 mmol/L (98-107); COSMO 283; CREATININE 0.9 mg/dL (0.7-1.2); ESTIMATED GFR > 60; GLUCOSE 131 mg/dL (70-104); GOT 39 U/L (10-34); GPT 38 U/L (10-44); MAGNESIUM 1.7 mg/dL (1.5-2.7); POTASSIUM 3.3 mmol/L (3.5-5.1); SODIUM 142 mmol/L (136-145); TCO2 29 mmol/L (25-35); TOTAL BILIRUBIN 0.29 mg/dL (0.20-1.00); TOTAL PROTEIN 5.4 g/dL (6.3-8.3)
[2019-11-19] MEDS ORDERED: PRILOSEC PO SCH (07:00)
[2019-11-19] MEDS ORDERED: KLOR-CON PO ONE (07:48)
[2019-11-19] MEDS: NEURONTIN PO SCH (08:46)
[2019-11-19] MEDS: LEXAPRO PO SCH (08:48)
[2019-11-19] MEDS: LACTULOSE PO SCH (08:48)
[2019-11-19] MEDS: FERROUS SULFATE PO SCH (08:48)
[2019-11-19] MEDS: DEPAKOTE ER PO SCH ×2 (08:48→12:32)
[2019-11-19] MEDS: TUMS PO SCH ×2 (08:48→13:14)
[2019-11-19] MEDS: ASPIRIN PO SCH (08:48)
[2019-11-19] MEDS: LR 1,000 ML IV SCH (08:49)
[2019-11-19 11:23] VITALS: BP 134/86
--- NOTE | 2019-11-19 12:49 | GENERAL SURGERY PROGRESS NOTE ---
DATE: 11/19/2019 SUBJECTIVE: He is doing well. He is gaining strength and function of his hand. No fevers. No tachycardia. His wounds are intact. Left wrist laceration is healing. Hand is well perfused. Palpable radial pulse. White count is 4, hematocrit is 23. Creatinine is 0.9. ASSESSMENT AND PLAN: This is a gentleman with a traumatic laceration of the upper arm, brachial artery, median nerve and vein injury. Doing well. He has baby aspirin at home that he takes for his heart, and will continue this. Stop his heparin, Allow him to go home. I do not see any signs of infection. We can stop his antibiotics. He will see me in a week to monitor his wounds. He has been educated on home strengthening and range of motion exercises. He will continue do this. I have provided him a sling, but from a surgical perspective, he is okay to go home. cc: Debbi Petersen MD
[2019-11-20 12:20] LABS: HCV BY PCR SEE COMMENTS
--- NOTE | 2019-11-21 07:02 | DISCHARGE SUMMARY ---
ADMISSION DATE: 11/16/2019 DISCHARGE DATE: 11/19/2019 FINAL DISCHARGE DIAGNOSES: 1. Laceration to the right upper arm with transection of the brachial artery, brachial veins, and median nerve, status post repair of the brachial artery, ligation of the brachial veins, and repair of the median nerve. 2. Acute blood loss anemia secondary to brachial artery injury. 3. Constipation. 4. Polysubstance abuse. 5. Hepatitis C. 6. Hypertension. CONSULTATIONS: General Surgery consultation with Dr. Petersen. PROCEDURES: 1. Repair of the brachial artery. 2. Ligation of the brachial veins. 3. Primary repair of the median nerve. HOSPITAL COURSE: Mr. Shi is a 34-year-old male with a history of polysubstance abuse, hypertension, and hepatitis C, who presented to the ER after he hit a window and sustained a laceration of his right arm, with involvement of the brachial artery, brachial veins, and the median nerve. Upon arrival, the patient was taken to the OR, at which time a repair of the brachial artery, ligation of the brachial veins, and a primary repair of the median nerve were performed. The patient was started on a heparin drip and aspirin, and monitored closely. The patient did suffer acute blood loss anemia, and received a blood transfusion. He was also treated with antibiotics. Slowly over the course of the hospitalization, the patient slowly improved. The patient continued to improve clinically, and was ultimately cleared by the general surgeon on 11/19/2019 for discharge home. DISCHARGE MEDICATIONS: 1. Aspirin 81 mg p.o. daily. 2. MiraLAX 17 grams oral daily. 3. [place] 1 tablet oral every 6 hours p.r.n. for pain. 4. Atenolol 25 mg oral at bedtime. 5. Gabapentin 800 mg oral twice a day. 6. Lexapro 20 mg oral daily. 7. Depakote 500 mg oral 3 times a day. DISCHARGE DIET: Low-sodium diet. ACTIVITY: As tolerated. FOLLOWUP INSTRUCTIONS: The patient is scheduled to follow up with Dr. Petersen on 11/26/2019. The patient will also need to follow up with Dr. Hackett as a new patient to discuss treatment of his hepatitis C. The patient has also been advised to follow up with his primary care physician in 1 week. The patient was also extensively counseled about avoiding illicit drugs and alcohol. cc: Krystal Cardoso MD [facility]
== END 2019-11-19 14:10 | disposition home or self-care (01) | DRG 908 ==
LOC: SUPCPDRO → 4N 06:26 → ED 06:26 → OBSVTOIN 08:14 → SUATTDRO 08:14 → 2N 10:12
PROVIDERS: ATTEND Internal Medicine